=== PATIENT | female | born 1955 | race Caucasian/White ===

== ENCOUNTER 2022-11-01 09:42 | Outpatient (CLI) | payer MEDICARE | END 2022-11-01 09:43 | disposition home or self-care (01) | LOC: CSHWCC 09:42 | PROVIDERS: ATTEND Nurse Practitioner Family | DX: T81.89XD Other complications of procedures, not elsewhere classified, subsequent encounter (principal) | CPT/HCPCS: 97139; 97597; 97607; G0463; 99203 ==

== ENCOUNTER 2022-11-08 08:38 | Outpatient (CLI) | payer MEDICARE | END 2022-11-08 08:39 | disposition home or self-care (01) | LOC: CSHWCC 08:38 | PROVIDERS: ATTEND Nurse Practitioner Family | DX: T81.89XD Other complications of procedures, not elsewhere classified, subsequent encounter (principal) | CPT/HCPCS: 97607 ==

== ENCOUNTER 2022-11-15 09:22 | Outpatient (CLI) | payer MEDICARE | END 2022-11-15 09:23 | disposition home or self-care (01) | LOC: CSHWCC 09:22 | PROVIDERS: ATTEND Nurse Practitioner Family | DX: T81.89XD Other complications of procedures, not elsewhere classified, subsequent encounter (principal) | CPT/HCPCS: 97607 ==

== ENCOUNTER 2022-11-22 11:35 | Outpatient (CLI) | payer MEDICARE | END 2022-11-22 11:36 | disposition home or self-care (01) | LOC: CSHWCC 11:35 | PROVIDERS: ATTEND Nurse Practitioner Family | DX: T81.89XD Other complications of procedures, not elsewhere classified, subsequent encounter (principal) | CPT/HCPCS: 97607 ==

== ENCOUNTER 2022-11-29 08:03 | Outpatient (CLI) | payer MEDICARE | END 2022-11-29 08:04 | disposition home or self-care (01) | LOC: CSHWCC 08:03 | PROVIDERS: ATTEND Nurse Practitioner Family | DX: T81.89XD Other complications of procedures, not elsewhere classified, subsequent encounter (principal) | CPT/HCPCS: 97602 ==

== ENCOUNTER 2023-01-09 15:01 | Outpatient (CLI) | payer MEDICARE | END 2023-01-09 15:02 | disposition home or self-care (01) | LOC: CSHWCC 15:01 | PROVIDERS: ATTEND Family Medicine | DX: T81.89XD Other complications of procedures, not elsewhere classified, subsequent encounter (principal) | CPT/HCPCS: 97607 ==

== ENCOUNTER 2023-01-16 08:02 | Outpatient (CLI) | payer MEDICARE | END 2023-01-16 08:03 | disposition home or self-care (01) | LOC: CSHWCC 08:02 | PROVIDERS: ATTEND Preventive Medicine Undersea and Hyperbaric Medicine | DX: L89.154 Pressure ulcer of sacral region, stage 4 (principal); T81.89XD Other complications of procedures, not elsewhere classified, subsequent encounter | CPT/HCPCS: 97607; G0463; 99213 ==

== ENCOUNTER 2023-01-20 08:11 | Outpatient (CLI) | payer MEDICARE | END 2023-01-20 08:12 | disposition home or self-care (01) | LOC: CSHWCC 08:11 | PROVIDERS: ATTEND Physician Assistant | DX: T81.89XD Other complications of procedures, not elsewhere classified, subsequent encounter (principal) | CPT/HCPCS: 97607 ==

== ENCOUNTER 2023-01-27 09:00 | Outpatient (CLI) | payer MEDICARE | END 2023-01-27 09:01 | disposition home or self-care (01) | LOC: CSHWCC 09:00 | PROVIDERS: ATTEND Physician Assistant | DX: T81.32XD Disruption of internal operation (surgical) wound, not elsewhere classified, subsequent encounter (principal) | CPT/HCPCS: 99211; G0463 ==

== ENCOUNTER 2023-04-09 09:15 | Outpatient (CLI) | payer MEDICARE | END 2023-04-09 09:16 | disposition home or self-care (01) | LOC: CSHWCC 09:15 | PROVIDERS: ATTEND Preventive Medicine Undersea and Hyperbaric Medicine | DX: L89.153 Pressure ulcer of sacral region, stage 3 (principal) | CPT/HCPCS: 97607; G0463; 99213 ==

== ENCOUNTER 2023-04-11 09:36 | Outpatient (CLI) | payer MEDICARE | END 2023-04-11 09:37 | disposition home or self-care (01) | LOC: CSHWCC 09:36 | PROVIDERS: ATTEND Preventive Medicine Undersea and Hyperbaric Medicine | DX: L89.153 Pressure ulcer of sacral region, stage 3 (principal) | CPT/HCPCS: 97607 ==

== ENCOUNTER 2023-04-22 08:07 | Outpatient (CLI) | payer MEDICARE | END 2023-04-22 08:08 | disposition home or self-care (01) | LOC: CSHWCC 08:07 | PROVIDERS: ATTEND Physician Assistant | DX: L89.153 Pressure ulcer of sacral region, stage 3 (principal) | CPT/HCPCS: 97607 ==

== ENCOUNTER 2023-04-29 13:15 | Outpatient (CLI) | payer MEDICARE | END 2023-04-29 13:16 | disposition home or self-care (01) | LOC: CSHWCC 13:15 | PROVIDERS: ATTEND Physician Assistant | DX: L89.153 Pressure ulcer of sacral region, stage 3 (principal) | CPT/HCPCS: 99213; G0463 ==

== ENCOUNTER 2023-05-07 10:45 | Outpatient (CLI) | payer MEDICARE | END 2023-05-07 10:46 | disposition home or self-care (01) | LOC: CSHWCC 10:45 | PROVIDERS: ATTEND Nurse Practitioner Family | DX: L89.153 Pressure ulcer of sacral region, stage 3 (principal) | CPT/HCPCS: 11042 ==

== ENCOUNTER 2023-05-14 13:51 | Outpatient (CLI) | payer MEDICARE | END 2023-05-14 13:52 | disposition home or self-care (01) | LOC: CSHWCC 13:51 | PROVIDERS: ATTEND Nurse Practitioner Family | DX: L89.153 Pressure ulcer of sacral region, stage 3 (principal) | CPT/HCPCS: 11042; 97605 ==

== ENCOUNTER 2023-05-22 16:18 | Outpatient (CLI) | payer MEDICARE | END 2023-05-22 16:19 | disposition home or self-care (01) | LOC: CSHWCC 16:18 | PROVIDERS: ATTEND Nurse Practitioner Family | DX: L89.153 Pressure ulcer of sacral region, stage 3 (principal) | CPT/HCPCS: 11042 ==

== ENCOUNTER 2023-05-29 13:37 | Outpatient (CLI) | payer MEDICARE | END 2023-05-29 13:38 | disposition home or self-care (01) | LOC: CSHWCC 13:37 | PROVIDERS: ATTEND Nurse Practitioner Family | DX: L89.153 Pressure ulcer of sacral region, stage 3 (principal) | CPT/HCPCS: 11042 ==

== ENCOUNTER 2023-06-06 13:16 | Outpatient (CLI) | payer MEDICARE | END 2023-06-06 13:17 | disposition home or self-care (01) | LOC: CSHWCC 13:16 | PROVIDERS: ATTEND Nurse Practitioner Family | DX: L89.153 Pressure ulcer of sacral region, stage 3 (principal) | CPT/HCPCS: 11042; 97607 ==

== ENCOUNTER 2023-06-23 13:25 | Outpatient (CLI) | payer MEDICARE | END 2023-06-23 13:26 | disposition home or self-care (01) | LOC: CSHWCC 13:25 | PROVIDERS: ATTEND Nurse Practitioner Family | DX: L89.153 Pressure ulcer of sacral region, stage 3 (principal); L08.9 Local infection of the skin and subcutaneous tissue, unspecified | CPT/HCPCS: 11042 ==

== ENCOUNTER 2023-06-30 09:32 | Outpatient (CLI) | payer MEDICARE | END 2023-06-30 09:33 | disposition home or self-care (01) | LOC: CSHWCC 09:32 | PROVIDERS: ATTEND Nurse Practitioner Family | DX: L89.153 Pressure ulcer of sacral region, stage 3 (principal); L08.9 Local infection of the skin and subcutaneous tissue, unspecified | CPT/HCPCS: 11044; 87070; 87205; 97607; 99213; G0463 ==

== ENCOUNTER → 2023-08-07 | Day surgery (SDC) | payer MEDICARE | LOC: CSHSPEC 07:13 | PROVIDERS: ATTEND Nurse Practitioner Family | PROC: 05HY33Z Insertion of Infusion Device into Upper Vein, Percutaneous Approach (ICD-10-PCS; principal; 2023-08-07) | DX: M46.28 Osteomyelitis of vertebra, sacral and sacrococcygeal region (principal) | CPT/HCPCS: 36569; 76937; 77001; C1751 ==

== ENCOUNTER 2023-08-19 10:41 | Outpatient (CLI) | payer MEDICARE | END 2023-08-19 10:42 | disposition home or self-care (01) | LOC: CSHWCC 10:41 | PROVIDERS: ATTEND Nurse Practitioner Family | DX: L89.153 Pressure ulcer of sacral region, stage 3 (principal); M46.27 Osteomyelitis of vertebra, lumbosacral region | CPT/HCPCS: 99213; G0463 ==

== ENCOUNTER 2023-09-02 08:57 | Outpatient (CLI) | payer MEDICARE | END 2023-09-02 08:58 | disposition home or self-care (01) | LOC: CSHWCC 08:57 | PROVIDERS: ATTEND Nurse Practitioner Family | DX: M46.27 Osteomyelitis of vertebra, lumbosacral region (principal); Z87.2 Personal history of diseases of the skin and subcutaneous tissue | CPT/HCPCS: 99212; G0463 ==

== ENCOUNTER 2023-09-11 08:59 | Outpatient (CLI) | payer MEDICARE | END 2023-09-11 09:00 | disposition home or self-care (01) | LOC: CSHWCC 08:59 | PROVIDERS: ATTEND Nurse Practitioner Family | DX: M46.27 Osteomyelitis of vertebra, lumbosacral region (principal); Z87.2 Personal history of diseases of the skin and subcutaneous tissue | CPT/HCPCS: 99212; G0463 ==

== ENCOUNTER 2024-02-23 09:16 | Outpatient (CLI) | payer MEDICARE | END 2024-02-23 09:17 | disposition home or self-care (01) | LOC: CSHWCC 09:16 | PROVIDERS: ATTEND Nurse Practitioner Family | DX: Z87.2 Personal history of diseases of the skin and subcutaneous tissue (principal) | CPT/HCPCS: 99213; G0463 ==